=== PATIENT | female | born 1960 | race Caucasian/White ===

== ENCOUNTER 2019-05-19 09:56 | Day surgery (SDC) | payer OTHER ==
[~2019-05-19 09:56] MED LIST: ACETAMINOPHEN 1,000 MG/100 ML BTL IVPB ONE; CEFAZOLIN 2 Gram 2 GM/50 ML BAG IVPB ONE
[2019-05-19] MEDS ORDERED: PROPOFOL 10 MG/ML VIAL IV ONE (09:57)
[2019-05-19] MEDS ORDERED: DEXAMETHASONE 4 MG/ML 1ML VIAL IVP ONE (09:57)
[2019-05-19] MEDS ORDERED: FENTANYL PF 100MCG/2ML VIAL IV ONE (09:57)
[2019-05-19] MEDS ORDERED: LIDOCAINE 2% MDV (20MG/ML) 20ML VIAL IV ONE (09:57)
[2019-05-19] MEDS ORDERED: DESFLURANE 240 ML BTL INH ONE (09:57)
[2019-05-19] MEDS ORDERED: ONDANSETRON HCL IV 4 MG/2 ML VIAL IVP ONE (09:57)
[2019-05-19] MEDS ORDERED: MIDAZOLAM HCL 10 MG/5 ML PO ONE (09:57)
[2019-05-19] MEDS ORDERED: RINGERS SOLUTION,LACTATED 1,000 ML IV ONE (10:30)
[2019-05-19] MEDS ORDERED: LIDOCAINE 1% MPF 100MG/10ML STERILE-PAK AMPULE SQ ONE (12:45)
[2019-05-19] MEDS ORDERED: BUPIVACAINE 0.5% (5MG/ML) PF 30ML VIAL IVP ONE (12:45)
--- NOTE | 2019-05-22 08:30 | Operative Note ---
DATE OF SURGERY: 05/19/2019 PREOPERATIVE DIAGNOSIS: Hallux abducto valgus, left foot. POSTOPERATIVE DIAGNOSIS: Hallux abducto valgus, left foot. OPERATION: Lapidus bunionectomy with internal screw fixation, left foot. SURGEON: Peña Dumont DPM ANESTHESIA: General with preoperative block. INDICATION: The patient has severe hallux adducto valgus bunion deformity of left foot not responsive to previous conservative care requiring surgical intervention. X-ray consistent with severe hallux abducto valgus deformity of left foot with significant increase in 1st intermetatarsal angle and an atavistic medial cuneiform. PROCEDURE IN DETAIL: The patient was brought into the OR suite and placed supine upon the OR table. After general anesthesia was instituted, a left tibial nerve block and dorsal proximal infiltrative block was given to the 1st ray with 30 mL of a 50/50 mixture of 1% lidocaine plain and 0.5% Marcaine plain after alcohol prep. Padding put around left distal thigh. The left foot/ankle/leg was prepped and draped in the usual sterile manner and exsanguinated with an Esmarch and the tourniquet was raised to 250 mmHg. Incision outlined and made, curvilinear, starting dorsolateral to the medial cuneiform and into the dorsomedial aspect of the hallux. Sharp and blunt dissection was utilized to deepen the incision. All vital structures identified and retracted without difficulty. Hemostasis achieved with Bovie. Inverted L capsulotomy performed exposing an extremely large bony prominence medial aspect of the 1st metatarsal head, which was removed with the power sagittal saw cooled with saline, maintaining a plantar sagittal groove. Bursa noted and removed sharply as well. Lateral capsulotomy performed. The conjoined tendon to the adductor hallucis was isolated and cut. The ligament between the fibular sesamoid and the 1st metatarsal head was isolated and cut as well. The extensor hallucis brevis tendon was isolated and cut. Dissection was then performed and the deep fascia was incised overlying the 1st metatarsal cuneiform joint. Sharp and blunt dissection utilized to isolate the joint as well as to isolate the neurovascular bundle dorsally which was identified, retracted, and protected throughout the entire procedure. Capsulotomy performed and reflected exposing the 1st metatarsal medial cuneiform joint. Adjacent surfaces of the joint were resected with the power sagittal saw cooled with saline in a laterally-based wedge fashion to correct the atavistic deformed medial cuneiform and to address the large increase in 1st intermetatarsal angle. All cartilage was removed. First metatarsal was reduced under C-arm guidance. Adequate reduction of the deformity was noted. The wound was flushed with copious amounts of sterile saline. A wire from the OsteoMed set was driven from a distal dorsal lateral to proximal medial plantar fashion with the 1st metatarsal head in rectus position against the cuneiform. An additional wire was then driven from a dorsal proximal lateral to a distal plantar medial fashion under C-arm guidance across the osteotomy as well. These wires were placed in correct position under C-arm guidance. Initial wire was measured at 36 mm. Therefore, one 4.0 x 36 mm headless cannulated OsteoMed screw was driven in typical cannulated fashion and the second wire measured at 28 mm. Therefore, one 3.0 x 28 mm headless cannulated OsteoMed screw was also driven in typical cannulated fashion. C-arm indicated good [id number] contact at the fusion site. The screws were of the appropriate lengths and the 1st intermetatarsal angle was reduced and the 1st metatarsophalangeal joint and metatarsal cuneiform joint were in a rectus position. The wound was flushed with copious amounts of sterile saline. Capsulorrhaphy performed. Capsule was closed in a simple interrupted fashion with 3-0 Vicryl. Deep fascia and subcu closed in simple interrupted fashion with 3-0 and 4-0 Vicryl. Skin closed in subcuticular continuous fashion with 5-0 PDS reinforced in simple interrupted fashion with 4- 0 nylon. During resection of the 1st metatarsal cuneiform joint, two 0.062 K wires were driven and a tarsal distractor was applied and the joint was distracted to allow for easier viewing. This whole device was removed during the surgery. The patient tolerated procedure well. A combination of sterile Adaptic, 4 x 4's, 4-inch Beatrice, and Sudhakar wrap were applied. Tourniquet deflated to 0 mmHg. Hyperemic flush noted to digits. The patient was transferred to recovery in stable condition without complaint. She is to minimize ambulation with a CAM walker and crutches or roll-about and keep extremity elevated. Take pain medication as needed. Keep dressing clean, dry, and intact and contact me by my cell phone as needed. She will follow up in the office in the next several days. She is to take pain medications as described. CARLY
== END 2019-05-19 15:16 | disposition home or self-care (01) ==
LOC: SUR 09:56
PROVIDERS: ATTEND Podiatrist
DX: M20.12 Hallux valgus (acquired), left foot (principal); R05 Cough; F17.210 Nicotine dependence, cigarettes, uncomplicated
CPT/HCPCS: 28297; 01480; C1713; J2405; J3010; J0690; J3490; J7120

== ENCOUNTER 2019-06-19 07:47 | Day surgery (SDC) | payer OTHER ==
[2019-06-19] MEDS ORDERED: LIDOCAINE 2% MDV (20MG/ML) 20ML VIAL IV ONE (07:48)
[2019-06-19] MEDS ORDERED: PROPOFOL 10 MG/ML VIAL IV ONE (07:48)
--- NOTE | 2019-06-20 06:40 | Operative Note ---
OPERATION: COLONOSCOPY with cold snare and cold forceps polypectomies. PREOPERATIVE DIAGNOSIS: Initial screening exam. POSTOPERATIVE DIAGNOSIS: Transverse colon polyp and rectal polyp. PREPARATION QUALITY: Good. ESTIMATED BLOOD LOSS: Minimum. SPECIMENS: Transverse colon polyp and rectal polyp. PROCEDURE: After informed consent was obtained from the patient, she was placed in the left lateral decubitus position in the endoscopy suite, sedated and monitored by the department of anesthesia. Digital rectal examination was unremarkable. A well-lubricated RGR024 colonoscope was inserted into the rectum and advanced to the cecum. Preparation quality was good to excellent. The cecum, cecal bulb, ileocecal valve, and appendiceal orifice were unremarkable. The ascending colon was also unremarkable. In the transverse colon, there was a sessile polyp approximately 1 cm removed in piecemeal fashion with a cold snare. The polyp was retrieved. Minimal bleeding was noted. The remainder of the transverse colon, descending colon, and sigmoid colon were unremarkable. There was a diminutive rectal polyp removed with a cold forceps. Forward and J-turn views of the rectum and anorectum were otherwise unremarkable. The endoscope was straightened, the rectal ampulla deflated, and the endoscope was removed. RECOMMENDATIONS: The patient will require repeat exam in 3-5 years pending tissue histology. As always, thank you for allowing me to participate in the healthcare of your patients. CARLY
== END 2019-06-19 09:54 | disposition home or self-care (01) ==
LOC: HOP 07:47
PROVIDERS: ATTEND Internal Medicine Gastroenterology
DX: Z12.11 Encounter for screening for malignant neoplasm of colon (principal); D12.3 Benign neoplasm of transverse colon; K63.5 Polyp of colon